=== PATIENT | female | born 1950 | race Caucasian/White ===

== ENCOUNTER 2017-06-30 03:34 | Emergency (ER) | payer BC ==
[~2017-06-30] VITALS: Ht 162.6 cm; Wt 65.8 kg
[~2017-06-30 03:34] MED LIST: AMITRIPTYLINE H50 MG; ASPIR-LOW81 MG; ATENOLOL50 MG; CALCIO DEL MAR500 MG; LODOSYN25 MG; MACROBID 100 M100 MG PO; MAXALT10 MG; MECLIZINE HCL25 MG PO; MULTI VITAMIN1 EACH; NORCO 5-325 TA1 EACH; SUPER B COMPLE150 MG; VITAMIN E1000 UNIT; ZOFRAN ODT8 MG PO
[2017-06-30] MEDS ORDERED: CARBIDOPA-LEVO1 EAC5 (04:03)
[2017-06-30] MEDS ORDERED: CARBIDOPA-LEVO1 EAC4 (04:04)
[2017-06-30] MEDS ORDERED: ATENOLOL50 MG PO (04:26)
[2017-06-30] MEDS ORDERED: AMITRIPTYLINE H25 MG PO (04:27)
[2017-06-30] MEDS ORDERED: HYDROCODON-ACE1 EA10 PO (04:27)
[2017-06-30] MEDS ORDERED: AMBIEN10 MG PO (04:27)
[2017-06-30] MEDS ORDERED: MAXALT10 MG PO (04:28)
[2017-06-30] MEDS ORDERED: ASPIR-LOW81 MG PO (04:28)
[2017-06-30] MEDS ORDERED: CLOBETASOL PROP15 GM (04:29)
[2017-06-30] MEDS ORDERED: SUPER B-50 COM1 EACH PO (04:29)
[2017-06-30] MEDS ORDERED: MULTIVITAMINS1 EAC7 PO (04:30)
[2017-06-30] MEDS ORDERED: CALCIUM 600 +1 EAC5 PO (04:30)
[2017-06-30] MEDS ORDERED: VITAMIN E1000 UNIT PO (04:30)
[2017-06-30] MEDS ORDERED: TOLTERODINE TART4 MG PO (04:31)
== END 2017-06-30 06:14 | disposition home or self-care (01) ==
LOC: ED 03:34
DX: K52.9 Noninfective gastroenteritis and colitis, unspecified (principal); G20 Parkinson's disease; Z87.891 Personal history of nicotine dependence; Z98.51 Tubal ligation status; Z79.899 Other long term (current) drug therapy; Z79.82 Long term (current) use of aspirin
CPT/HCPCS: 80053; 81001; 83690; 85025; 96361; 96374; 99283; J2405; J7030

== ENCOUNTER 2018-05-21 08:45 | Day surgery (SDC) | payer BC ==
[~2018-05-21] VITALS: Ht 165.1 cm; Wt 68.5 kg
[~2018-05-21 08:45] MED LIST changes: +AMBIEN10 MG PO; +AMITRIPTYLINE H25 MG PO; +ASPIR-LOW81 MG PO; +ATENOLOL50 MG PO; +CALCIUM 600 +1 EAC5 PO; +CARBIDOPA-LEVO1 EAC4; +CARBIDOPA-LEVO1 EAC5; +CLOBETASOL PROP15 GM; +HYDROCODON-ACE1 EA10 PO; +MAXALT10 MG PO; +MULTIVITAMINS1 EAC7 PO; +SUPER B-50 COM1 EACH PO; +TOLTERODINE TART4 MG PO; +VITAMIN E1000 UNIT PO
--- NOTE | 2018-05-21 10:43 | NUR ---
05/21/18 1043 Wily Mitchell MD AT BEDSIDE AT 1040 REVIEWING PROCEDURE WITH PT. MARYAM CONTINUES TO DENY NAUSEA OR PAIN. REPOSITIONED IN BED AND GAVE SIPS OF WATER WITHOUT PROBLEMS.
--- NOTE | 2018-05-22 09:34 | OR ---
[facility] [address], [place] [address] Signed DATE OF OPERATION: 05/21/2018 SURGEON: Alysha Wei MD PREOPERATIVE DIAGNOSES: 1. Constipation. 2. History of Parkinson disease. POSTOPERATIVE DIAGNOSIS: Small polyp right colon (excised) PROCEDURE: Total colonoscopy to cecum with cold morcellation polypectomy x1. ANESTHESIA: Intravenous sedation, fentanyl 100 mcg and versed 5 mg. INDICATION: This 67-year-old white woman is a patient of Dr. Vásquez and Dr. Lees and known to me from the past. 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 The patient underwent colonoscopy greater than 10 years ago, which was normal. She has constipation currently, but is also afflicted by Parkinson disease and multiple medications to manage that, which may have contributed to her constipation. She is admitted at this time to undergo colonoscopy, understands the risks of bleeding, infection, and perforation. FINDINGS: The prep was good. Complete colonoscopy was undertaken of the cecum. There was a small polyp of the right colon, which was excised. The remaining colon was normal. DESCRIPTION OF PROCEDURE: The patient was brought to the endoscopy suite and placed in lateral decubitus position, given intravenous sedation to the point of slurred speech and nystagmus. Digital rectal examination was normal. The Olympus video colonoscope was passed in the rectum and manipulated throughout the colon, ultimately intubating the cecum itself. Ileocecal valve was normal as was the appendiceal orifice. Photographs were taken. The scope was withdrawn and in the mid Electronically Signed By: ALYSHA WEI MD 05/22/18 0934 PATIENT NAME: MARYAM CHERRY OPERATIVE REPORT DATE OF : 54 REPORT #: [id number] PHYSICIAN: ALYSHA WEI MD PCP: HIEN VÁSQUEZ MD REPORT IS CONFIDENTIAL AND NOT TO BE RELEASED WITHOUT AUTHORIZATION [facility] [address], [place] [address] Signed ascending colon was a small sessile polyp. This was excised with cold morcellation technique without problem. Further withdrawal of the scope showed no sign of other abnormality. There may be a few scattered diverticula. Retroflexed view was normal. Scope was removed and the patient was taken to recovery room in good condition. CONCLUDING DIAGNOSIS: Small polyp, right colon. PLAN: Recommend repeat colonoscopy in 10 years unless pathology report confirms adenoma in which case, repeat in 5 years would be more appropriate. MD ALINE Saunders/FIORDALIZAL /[id number] cc: MD Dr. Fahad Lott Copies: LONG LEES MD ~ Electronically Signed By: ALYSHA WEI MD 05/22/18 0934 PATIENT NAME: MARYAM CHERRY OPERATIVE REPORT DATE OF : 54 REPORT #: [id number] PHYSICIAN: ALYSHA WEI MD PCP: HIEN VÁSQUEZ MD REPORT IS CONFIDENTIAL AND NOT TO BE RELEASED WITHOUT AUTHORIZATION
== END 2018-05-21 11:01 | disposition home or self-care (01) ==
LOC: DS 08:45 → OPS 08:45 → DS 10:00 → OPS 11:01
PROVIDERS: Surgery
PROC: 0DBF8ZZ Excision of Right Large Intestine, Via Natural or Artificial Opening Endoscopic (ICD-10-PCS; principal; 2018-05-21 10:00)
DX: D12.2 Benign neoplasm of ascending colon (principal); K59.09 Other constipation; G20 Parkinson's disease; I10 Essential (primary) hypertension; Z86.010 Personal history of colon polyps; Z98.890 Other specified postprocedural states
CPT/HCPCS: 99153; G0500; J2250; J3010; J7120

== ENCOUNTER 2023-11-13 11:53 | Emergency (ER) | payer BC ==
[~2023-11-13] VITALS: Ht 165.1 cm; Wt 73.9 kg
[2023-11-13] MEDS ORDERED: ROPINIROLE HCL1 MG PO (12:09)
[2023-11-13] MEDS ORDERED: MELATONIN1 MG PO (12:11)
[2023-11-13] MEDS ORDERED: VITAMIN D310 MC2 (12:11)
[2023-11-13] MEDS ORDERED: DONEPEZIL HCL10 MG PO (12:11)
[2023-11-13 12:48] LABS: BASOPHILS 0.3 % (0-2); HEMATOCRIT 40.4 % (35.0-50.0); HEMOGLOBIN 13.3 g/dL (12.0-18.0); LYMPHOCYTES 6.9 % (24-44); MCH 29.2 (27-36); MCV 88.5 fl (81-99); MONOCYTES 5.2 % (0-12); NEUTROPHILS 87.6 % (39-80); PLATELET COUNT 174 K/uL (140-440); RBC 4.56 M/ul (4.3-5.7)
[2023-11-13 12:49] LABS: BILIRUBIN, URINE NEGATIVE (negative); BLOOD/HGB, URINE NEGATIVE (Negative); KETONE, URINE TRACE (Negative); LEUK ESTERASE, URINE NEGATIVE (negative); NITRITE, URINE NEGATIVE (negative)
[2023-11-13 12:59] LABS: WHITE BLOOD CELLS, URINE 0-1 /HPF (0-5)
[2023-11-13 13:00] LABS: BACTERIA, URINE NONE SEEN /hpf (negative); CASTS, URINE NONE SEEN \\lpf; COLLECTION TYPE, URINE CATH; CRYSTALS, URINE NONE SEEN (0-1+); EPITHELIAL CELLS, URINE 0 /lpf (0-1+); REFLEX CULTURE, URINE No (No)
[2023-11-13 13:09] LABS: ALBUMIN 3.5 g/dL (3.4-5.0); ALBUMIN/GLOBULIN RATIO 1.03 (1.1-2.4); ANION GAP 13.2 (7-21); BILIRUBIN, TOTAL 0.6 ng/dL (0.2-1.0); BUN/CREATININE RATIO 11.11 (6.0-28.6); CALCIUM 8.5 mg/dL (8.5-10.1); CREATININE, SERUM 1.08 mg/dL (0.55-1.02); POTASSIUM 4.2 mmol/L (3.5-5.1); PROTEIN, TOTAL 6.9 g/dL (6.4-8.2)
[2023-11-13 13:40] LABS: INFLUENZA B NAA NEGATIVE (NEGATIVE); RESPIRATORY SYNCYTIAL VIR NAA NEGATIVE (NEGATIVE)
[2023-11-13 14:27] VITALS: BP 99/56
== END 2023-11-13 14:28 | disposition home or self-care (01) ==
LOC: ED 11:53
PROVIDERS: Emergency Medicine
DX: G20.A1 Parkinson's disease without dyskinesia, without mention of fluctuations (principal); F02.80 Dementia in other diseases classified elsewhere, unspecified severity, without behavioral disturbance, psychotic disturbance, mood disturbance, and anxiety; I10 Essential (primary) hypertension; Z11.52 Encounter for screening for COVID-19; Z87.891 Personal history of nicotine dependence; Z79.899 Other long term (current) drug therapy; Z79.82 Long term (current) use of aspirin
CPT/HCPCS: 36415; 80053; 81001; 85025; 87502; 99284; A9270; C9803; J7030; U0002

== ENCOUNTER 2025-01-04 18:24 | Emergency (ER) | payer BC ==
[~2025-01-04] VITALS: Ht 165.1 cm; Wt 76.7 kg
[~2025-01-04 18:24] MED LIST changes: +DONEPEZIL HCL10 MG PO; +MELATONIN1 MG PO; +ROPINIROLE HCL1 MG PO; +VITAMIN D310 MC2
[2025-01-04] MEDS ORDERED: ASPIRIN 81 MG CHEW PO ONE (18:30)
[2025-01-04 18:43] LABS: BASOPHILS 0.7 % (0-2); EOSINOPHILS 0.9 % (0-6); HEMATOCRIT 42.4 % (35.0-50.0); LYMPHOCYTES 19.7 % (24-44); MCH 29.1 (27-36); MONOCYTES 7.2 % (0-12); NEUTROPHILS 71.5 % (39-80); PLATELET COUNT 244 K/uL (140-440); RBC 4.82 M/ul (4.3-5.7); RDW 13.8 (10.5-15.0)
[2025-01-04] MEDS ORDERED: QUETIAPINE FUMA25 MG (18:43)
[2025-01-04 19:00] LABS: ALBUMIN 3.9 g/dL (3.4-5.0); ALBUMIN/GLOBULIN RATIO 1.3 (1.1-2.4); ANION GAP 13.8 (7-21); BILIRUBIN, TOTAL 0.4 mg/dL (0.2-1.0); BUN/CREATININE RATIO 18.26 (6.0-28.6); CALCIUM 9.1 mg/dL (8.5-10.1); CREATININE, SERUM 1.15 mg/dL (0.55-1.02); MAGNESIUM 2.1 mg/dL (1.8-2.4); POTASSIUM 3.8 mmol/L (3.5-5.1); PROTEIN, TOTAL 6.9 g/dL (6.4-8.2)
[2025-01-04] MEDS ORDERED: CYCLOBENZAPRINE10 MG PO (20:19)
[2025-01-04 20:27] VITALS: BP 164/67
[2025-01-04] MEDS ORDERED: CYCLOBENZAPRINE HCL 10 MG HOME.PACK PO ONE (20:30)
--- NOTE | 2025-01-05 14:01 | EKG ---
[facility] [address] [facility] [place] [address] Signed Normal sinus rhythm Normal ECG No previous ECGs available Confirmed by Wilbert Dumont MD ([id number]) on 01/05/2025 2:01:07 PM Electronically Signed By: WILBERT DUMONT MD 01/05/25 1401 PATIENT NAME: MARYAM CHERRY Electrocardiogram DATE OF : 54 PHYSICIAN: WILBERT DUMONT MD REPORT #: [id number] REPORT IS CONFIDENTIAL AND NOT TO BE RELEASED WITHOUT AUTHORIZATION
== END 2025-01-04 20:31 | disposition home or self-care (01) ==
LOC: ED 18:24
PROVIDERS: Emergency Medicine
DX: R07.89 Other chest pain (principal); G20.A1 Parkinson's disease without dyskinesia, without mention of fluctuations; F02.80 Dementia in other diseases classified elsewhere, unspecified severity, without behavioral disturbance, psychotic disturbance, mood disturbance, and anxiety; I10 Essential (primary) hypertension; Z87.891 Personal history of nicotine dependence; Z79.899 Other long term (current) drug therapy; Z79.82 Long term (current) use of aspirin
CPT/HCPCS: 36415; 71045; 80053; 83735; 84484; 85025; 85379; 93005; 93010; 99285-25; A9270

== ENCOUNTER 2025-03-11 11:18 | Inpatient (IN) | payer MEDICARE, BC ==
[~2025-03-11] VITALS: Ht 165.1 cm; Wt 77.9 kg
[~2025-03-11 11:18] MED LIST changes: -CARBIDOPA-LEVO1 EAC4; +CARBIDOPA-LEVO1 EAC4 PO; -CARBIDOPA-LEVO1 EAC5; +CARBIDOPA-LEVO1 EAC5 PO; +CYCLOBENZAPRINE10 MG PO; +QUETIAPINE FUMA25 MG PO
[2025-03-11 11:28] LABS: BASOPHILS 0.7 % (0-2); EOSINOPHILS 0.5 % (0-6); HEMATOCRIT 40.1 % (35.0-50.0); LYMPHOCYTES 19.4 % (24-44); MCH 29.3 (27-36); MCHC 34.9 g/dl (30-36); MCV 84.2 fl (81-99); MONOCYTES 5.2 % (0-12); NEUTROPHILS 74.2 % (39-80); PLATELET COUNT 229 K/uL (140-440); RBC 4.77 M/ul (4.3-5.7); RDW 13.7 (10.5-15.0)
[2025-03-11] MEDS ORDERED: LORazepam 2 MG/ML VIAL IV ONE ×2 (11:30→12:30)
[2025-03-11 11:39] LABS: INR 1.1 (0.80-1.30); PROTIME 13.8 Sec (11.2-14.2)
[2025-03-11 11:41] LABS: PARTIAL THROMBOPLASTIN TIME 25.4 Sec (22.9-41.3)
[2025-03-11 11:45] LABS: ALBUMIN 3.9 g/dL (3.4-5.0); ALKALINE PHOSPHATASE 131 U/L (46-116); ALT (SGPT) 22 U/L (14-59); ANION GAP 12.2 (7-21); AST (SGOT) 21 U/L (15-37); BILIRUBIN, TOTAL 0.5 mg/dL (0.2-1.0); BUN/CREATININE RATIO 17.75 (6.0-28.6); CALCIUM 8.7 mg/dL (8.5-10.1); CARBON DIOXIDE 28 mmol/L (21-32); CHLORIDE 105 mmol/L (98-107); CREATININE, SERUM 1.07 mg/dL (0.55-1.02); GLOMERULAR FILTRATION RATE,EST 55 mL/min (>60); POTASSIUM 4.2 mmol/L (3.5-5.1); PROTEIN, TOTAL 6.9 g/dL (6.4-8.2); UREA NITROGEN 19 mg/dL (7-18)
[2025-03-11 13:02] LABS: PH, VENOUS 7.389 (7.31-7.41)
[2025-03-11 13:04] LABS: BILIRUBIN, URINE NEGATIVE (negative); BLOOD/HGB, URINE NEGATIVE (Negative); KETONE, URINE NEGATIVE (Negative); LEUK ESTERASE, URINE TRACE (negative); NITRITE, URINE NEGATIVE (negative)
[2025-03-11 13:09] LABS: EPITHELIAL CELLS, URINE TRANSITIONAL 1+ /lpf (0-1+)
[2025-03-11 13:10] LABS: BACTERIA, URINE NONE SEEN /hpf (negative); CASTS, URINE NONE SEEN \\lpf; COLLECTION TYPE, URINE CLEAN CATCH; CRYSTALS, URINE NONE SEEN (0-1+); RED BLOOD CELLS, URINE 0-1 /hpf (0-5); REFLEX CULTURE, URINE No (No)
[2025-03-11 13:20] LABS: AMPHETAMINES, URINE NEGATIVE (NEGATIVE); BARBITURATES, URINE NEGATIVE (NEGATIVE); BENZODIAZEPINE, URINE NEGATIVE (NEGATIVE); BUPRENORPHINE, URINE NEGATIVE (NEGATIVE); CANNABINOID, URINE NEGATIVE (NEGATIVE); COCAINE, URINE NEGATIVE (NEGATIVE); ECSTASY, URINE NEGATIVE (NEGATIVE); FENTANYL, URINE NEGATIVE (NEGATIVE); METHADONE, URINE NEGATIVE (NEGATIVE); OPIATES, URINE NEGATIVE (NEGATIVE); OXYCODONE, URINE NEGATIVE (NEGATIVE); PHENCYCLIDINE, URINE NEGATIVE (NEGATIVE)
[2025-03-11] MEDS ORDERED: ACETAMINOPHEN 325 MG TAB PO PRN (15:15)
[2025-03-11] MEDS ORDERED: SODIUM CHLORIDE 0.9% 1,000 ML IV SCH (15:15)
[2025-03-11] MEDS ORDERED: ondansetron HCL 4 MG/2 ML VIAL IV PRN (15:15)
[2025-03-11] MEDS ORDERED: SEROQUEL25 MG PO (15:19)
--- NOTE | 2025-03-11 15:45 | NUR ---
PATIENT ARRIVES VIA STRETCHER WITH ROSIE VELASCO AND MULTIPLE FAMILY MEMBERS PRESENT. TRANSFERED TO HOSPITAL BED VIA SLIDE SHEET. VS OBTAINED AND RECORDED, WEIGHT OBTAINED AND RECORDED, BOTH IVs FLUSHED. THIS RN REMAINS IN ROOM TO COMPLETE ADMISSION.
[2025-03-11 15:54] VITALS: BP 147/67
--- NOTE | 2025-03-11 16:33 | NUR ---
medications reconciled using pharmacy records and patient's interview. she has several specific times throughout the day that she takes her medications for Parkinson's disease that have proven to be the most beneficial for her
--- NOTE | 2025-03-11 16:57 | NUR ---
ASSESSMENT COMPLETE. PATIENT'S MENTAL STATUS IS WAXING AND WANING WITH PATIENT HOLDING FLUENT, ORIENTED CONVERSATION FOR SEVERAL MINUTES AND THEN FALLING SILENT WITH EYES OPEN AND STARING AT NOTHING. AFTER APPROXIMATELY A MINUTE PATIENT BEGINS CONVERSING AGAIN WITH PROMPTING. PATIENT IS UNSURE OF DATE, RESPONDING "OH MAN, I'M NOT SURE." WHEN ASKED. PATIENT CORRECTLY IDENTIFIES THAT SHE IS IN A HOSPITAL AND IS AGREEABLE TO CARES. PATIENT CANNOT ANSWER WHY SHE IS IN THE HOSPITAL BUT CAN TELL THIS RN THAT SHE USUALLY GOES TO [facility] TO SEE HER DOCTOR. IVF INFUSING WNL TO LEFT FOREARM. PATIENT HAS NO COMPLAINTS OF PAIN OR DISCOMFORT. CALL LIGHT IN REACH, BED ALARM ON, BED IN LOWEST POSITION.
[2025-03-11] MEDS ORDERED: LEVODOPA/CARBIDOPA 25/100 1 EA TAB PO SCH (17:00)
--- NOTE | 2025-03-11 17:33 | NUR ---
UPDATED ON PATIENT'S STATUS. REQUESTS NEURO CHECKS Q4, OK TO D/C NIH D/T LOW STROKE SUSPICION. NO NEW ORDERS.
--- NOTE | 2025-03-11 17:43 | NUR ---
PATIENT IS NOTED TO HAVE TENDENCY TO LEAN TO HER LEFT AND HAVE CLASSICAL PD MOVEMENTS IN BED. FALL MAT PLACED TO L SIDE OF BED. PATIENT HAS ALSO VOIDED CLEAR, YELLOW URINE. PATIENT HAS NO REQUESTS, SHE IS SUCKING ON A TOOTSIE POP. CALL LIGHT AND PERSONAL BELONGINGS IN REACH.
[2025-03-11 18:36] VITALS: BP 124/57
--- NOTE | 2025-03-11 18:37 | NUR ---
PATIENT IS IN HER BED AT THIS TIME, HOT ROLL INSPECTOR CHARTED VITALS AND I&O'S CALL LIGHT WITH IN REACH AND NOTHING ELSE NEEDED AT THIS TIME
--- NOTE | 2025-03-11 18:48 | NUR ---
PATIENT'S EXPRESSES CONCERNS OVER THE PATIENT'S CARE. HE STATES HE HAS CARED FOR HER 24/7 FOR 3.5 YEARS AND HE IS VERY TIRED. HE SAYS THAT HE WOULD NEVER PLACE HIS IN A HOME, HE IS UNSURE WHAT OTHER OPTIONS HE HAS. CONSULT PLACED TO CASE MANAGEMENT SO PATIENT MAY REVIEW RESOURCES.
[2025-03-11 18:58] VITALS: BP 124/57
[2025-03-11] MEDS ORDERED: LEVODOPA PO SCH (19:00)
[2025-03-11] MEDS ORDERED: DONEPEZIL HCL 10 MG TAB PO SCH (19:00)
[2025-03-11] MEDS ORDERED: CARBIDOPA PO SCH (19:00)
--- NOTE | 2025-03-11 19:27 | NUR ---
RECEIVED REPORT. PT ALERT WITH SUPPORTIVE AT BEDSIDE. REPORTS PT IS SOMEWHAT RESTLESS. NO NEEDS PRESENTLY. ASKS IF SHE SHOULD TAKE SOME MEDICAITON FOR SLEEPING, EDUCATEDT HAT SEDATION MAY MAKE IT DIFFICULT TO ASSESS ACCURATE NEURO STATUS AND MAY BE CONTRIBUTING TO ALTERED MENTAL STATUS. VERBALIZES UNDERSTANDING. CALL LGT IN REACH, BED ALARM ACTIVE.
--- NOTE | 2025-03-11 20:10 | NUR ---
PT RESTLESS IN BED, DESIRES TO GO HOME.SUPPORTIVE IN ROOM. ASSISTED PT FROM BED TO RECLINER TO LOOK OUT WINDOW, TURNED OF TELEVISION SOUND. WRAPPED PT IV AND HID TUBES. PLACED PERSONAL OBJECTS AND CALL LIGHT ON TABLE IN FRONT OF PT AND WARM BLANKETS GIVEN. RE-DIRECTED PT ASKING ABOUT HER CAT. PT MUCH LESS AGITATED. GIVEN EVENING MEDS, VITALS, ASSESSMENT. NO OTHER NEEDS PRESENTLY. CHAIR ALARM ACTIVE
[2025-03-11] MEDS ORDERED: POLYETHYLENE GLYCOL 3350 1 PACKET PO SCH (21:00)
[2025-03-11 21:14] VITALS: BP 113/89
--- NOTE | 2025-03-11 21:52 | EKG ---
[facility] [address] [facility] [place] [address] Signed Normal sinus rhythm Cannot rule out Anterior infarct , age undetermined Abnormal ECG When compared with ECG of 04-JAN-2025 18:27, Questionable change in QRS axis Confirmed by Grecia Villafana MD () on 03/11/2025 9:52:21 PM Electronically Signed By: GRECIA VILLAFANA MD 03/11/[id number] PATIENT NAME: MARYAM CHERRY ANN Electrocardiogram DATE OF : 54 PHYSICIAN: GRECIA VILLAFANA MD REPORT #: [id number] REPORT IS CONFIDENTIAL AND NOT TO BE RELEASED WITHOUT AUTHORIZATION
--- NOTE | 2025-03-11 22:17 | NUR ---
PT ASSISTED BY CHARGE FROM CHAIR BACK TO BED. RECONNECTED PUREWICK, ALL PERSONAL OBJECTS IN REACH. CALL LIGHT IN REACH, BED ALARM ACTIVE, FALL MATTS IN PLACE.
[2025-03-11 22:50] VITALS: BP 113/89
--- NOTE | 2025-03-11 23:47 | NUR ---
PT ALERT, SEEN UNWRAPPING ELISHA AROUND IV SITE. HELPED PT RE-ADJUST IN BED AND RE-WRAPPED IV SITE. NO OTHER NEEDS, BED ALARM ACTIVE
[2025-03-12] VITALS (15 sets, daily range): BP systolic 136–210; BP diastolic 58–136
--- NOTE | 2025-03-12 00:13 | NUR ---
RESPONDED TO PT CALLING OUT. REPORRTS PUREWICK IS UNCOMFORTABLE. ADJUSTED PUREWICK AND HELPED PT ADJUST IN BED. NO OTHER NEEDS, CALL LIGHT IN REACH, BED ALARM ACTIVE
[2025-03-12] MEDS ORDERED: CLOTRIMAZOLE 1% 30 GM TUBE TOP PRN (00:15)
--- NOTE | 2025-03-12 02:05 | NUR ---
RESPONDED TO BED ALARM. PT INITIALLY DISORIENTED AND FEARFUL UPON WAKING, BUT CALMED WITH REORIENTATION, REMEMBERS SHE IS IN HOSPITAL. ASSISTED TO BEDSIDE COMMODE, THEN BACK TO BED. VITALS TAKEN. BP ELEVATED, BUT LIKELY D/T TRANSFERRING, PLAN TO RECHECK. PERSONAL POSSESSIONS AND CALL LIGHT IN REACH, BED ALARM ACTIVE.
--- NOTE | 2025-03-12 04:13 | NUR ---
RESPONDED TO BED ALARM. PT ATTEMPTING TO GO TO BATHROOM D/T LARGE BOWEL MOVEMENT. ASSISTED TO BEDSIDE COMMODE, CHANGED BED LINENS AND BRIEF. PT WITH ADDITIONAL BM TO COMMODE. ASSISTED TO BED AND READJUSTED. PERSONAL ITEMS IN REACH, BED ALARM ACTIVE
[2025-03-12 05:17] LABS: BASOPHILS 0.4 % (0-2); EOSINOPHILS 0.2 % (0-6); HEMATOCRIT 39.5 % (35.0-50.0); HEMOGLOBIN 13.6 g/dL (12.0-18.0); LYMPHOCYTES 16.4 % (24-44); MCH 28.7 (27-36); MCHC 34.3 g/dl (30-36); MCV 83.8 fl (81-99); MONOCYTES 4.7 % (0-12); NEUTROPHILS 78.3 % (39-80); PLATELET COUNT 200 K/uL (140-440); RBC 4.72 M/ul (4.3-5.7); RDW 13.7 (10.5-15.0)
[2025-03-12 05:46] LABS: ALBUMIN 3.6 g/dL (3.4-5.0); ALBUMIN/GLOBULIN RATIO 1.24 (1.1-2.4); ANION GAP 12.1 (7-21); BILIRUBIN, TOTAL 0.5 mg/dL (0.2-1.0); BUN/CREATININE RATIO 13.79 (6.0-28.6); CALCIUM 8.4 mg/dL (8.5-10.1); CREATININE, SERUM 0.87 mg/dL (0.55-1.02); MAGNESIUM 2.2 mg/dL (1.8-2.4); POTASSIUM 4.1 mmol/L (3.5-5.1); PROTEIN, TOTAL 6.5 g/dL (6.4-8.2)
[2025-03-12 05:58] LABS: CHOLESTEROL/HDL RATIO 3.5
[2025-03-12] MEDS ORDERED: LEVODOPA/CARBIDOPA 25/100 1 EA TAB PO SCH (06:00)
--- NOTE | 2025-03-12 06:02 | NUR ---
PT WITH ELEVATED BP, INITIALLY IN 200S, REDUCED TO 170/90. NO STROKE SX, DENIES PAIN. LAB IN ROOM PRIOR. NOTIFIED. PLAN TO RECHECK IN 30 MIN.
--- NOTE | 2025-03-12 07:02 | NUR ---
REPEAT BP 181/74. ARRIVES, MENTIONS PT BP FLUXUATES FREQUENTLY SECONDARY TO HER PARKINSON'S, AND SHE DOES NOT TAKE BP MEDS REGULARLY BUT HAS A "HALF PILL" THAT SHE TAKES WHEN HER BLOOD PRESSURE IS TOO HIGH. HE DOES NOT REMEMBER THE NAME OF THE MEDICATION, BUT STATES HE WILL LOOK WHEN HE STOPS BY HOME. GIVEN MENU, CALL LIGHT IN REACH
--- NOTE | 2025-03-12 07:27 | NUR ---
PT RESTING QUIET ALERT AT TIME OF SHIFT REPORT. AGREES SHE IS COMFORTABLE DENIES NEEDS. FALL MAT IN PLACE CALL LIGHT IN LAP FLUIDS AT BEDSIDE.
--- NOTE | 2025-03-12 08:07 | NUR ---
PT ARRIVES ASSISTS PT TO CHAIR. SHE HAS A LARGE SOFT BM FABIAN CARE COMLETE. PT IN RECLINER DRINKING FLUIDS STAYING TO VISIT.
--- NOTE | 2025-03-12 08:30 | NUR ---
PATIENT SITTING UP IN CHAIR AT THIS TIME. ASSISTING PATIENT WITH EATING BREAKFAST. BOARD UPDATED. CALL LIGHT IN REACH.
--- NOTE | 2025-03-12 09:38 | NUR ---
ASSISTS WITH MORNING MEAL PT EATS 100% HAS CONTINUED IN CHAIR ALL MORNING. ECHO COMING FOR SCAN PT RETURNED TO BED GOES TO EAT. BED ALARM IS SET
--- NOTE | 2025-03-12 10:59 | NUR ---
PATIENT IN BED AT THIS TIME. VITALS AND I&O'S DONE AND CHARTED. BLOOD PRESSURE HIGH, RN NOTIFED. PT IN ROOM AT THIS TIME. CALL LIGHT IN REACH. NO FURTHER NEEDS AT THIS TIME.
--- NOTE | 2025-03-12 11:14 | NUR ---
DR VILLAFANA NOTIFIED OF ELEVATED BP
--- NOTE | 2025-03-12 11:17 | NUR ---
PT WORKING WITH P/T.
--- NOTE | 2025-03-12 11:27 | NUR ---
PT TO BSC PASSES MORE STOOL. FABIAN CARE COMPLETE CONTINUES TO WORK WITH P/T. VISITOR IS PRESENT.
--- NOTE | 2025-03-12 11:44 | NUR ---
PT VERY COOPERATIVE WITH THERAPY THEN RETURNS TO THE CHAIR. DRINKS FRESH H20. SITTING UP NOW, AND DAUGHTER PRESENT.
[2025-03-12] MEDS ORDERED: PHARMACY RENAL DOSE ADJUSTMENT 1 DOSE MISC PO SCH (12:00)
--- NOTE | 2025-03-12 13:57 | NUR ---
PATIENT IN BED RESTING WITH EYES CLOSED. VITALS AND I&O'S DONE AND CHARTED. CALL LIGHT IN REACH. NO FURTHER NEEDS AT THIS TIME.
--- NOTE | 2025-03-12 14:14 | NUR ---
PT COMPLETES NOON MEAL WITH HUSBANDS ASSISTANCE. RESTING IN BED NOW EYES CLOSED CALL LIGHT IN REACH
[2025-03-12] MEDS ORDERED: LABETALOL HCL 100 MG TAB PO PRN (15:00)
--- NOTE | 2025-03-12 17:51 | NUR ---
PT SITTING UP IN THE CHAIR PRESENT TO ASSIST WITH EVENING MEAL. PT C/O NAUSEA ZOFRAN ADMINISTERED AND JELLO PROVIDED PER REQUEST
--- NOTE | 2025-03-12 18:34 | NUR ---
PATIENT IN BED RESTING AT THIS TIME. VITALS AND I&O'S DONE AND CHARTED. BP HIGH, RN NOTIFIED. CALL LIGHT IN REACH. IN ROOM. NO FURTHER NEEDS AT THIS TIME.
--- NOTE | 2025-03-12 19:12 | NUR ---
RECEIVED REPORT. LUCILLE IN ROOM WITH PT, PT ALERT IN BED. NO NEEDS AT THIS TIME. CALL LIGHT IN REACH, BED ALARM ACTIVE, FALL MAT IN PLACE
--- NOTE | 2025-03-12 20:28 | NUR ---
ASSESSMENT, VITALS, EVENING MEDS. PT REQUESTS SANDWICH, NONE IN [place]ID[place]. WILL TRY AND FIND ONE. DECLINES OTHER SNACKS. NO OTHER NEEDS PRESENTLY, CALL LIGHT IN REACH, BED ALARM ACTIVE
--- NOTE | 2025-03-12 21:45 | NUR ---
BED ALARMING. ASSISTED PATIENT UP TO THE BATHROOM TO VOID. FABIAN CARE ASSISTED. FRESH PULL UPS PLACED. PATIENT IS BACK IN BED. ALARM ON FOR SAFETY.
--- NOTE | 2025-03-12 22:29 | NUR ---
PT RESTING IN BED WITH EYES CLOSED. BED ALARM ACTIVE, FALL MAT IN PLACE
--- NOTE | 2025-03-13 00:58 | NUR ---
PT RESTING IN BED WITH CLOSED EYES, RISE AND FALL OF CHEST OBSERVED. BED ALARM ACTIVE, FALL MAT IN PLACE
--- NOTE | 2025-03-13 02:25 | NUR ---
BED ALARMING. JET AIRCRAFT SERVICER DILIA IN THE ROOM. THIS IN FILE OPERATOR TOOK OVER. 1 PA PATIENT UP TO THE BATHROOM. PULL UPS WET. FABIAN CARE ASSISTED. FRESH PULL UP PLACED. BED LINEN CHANGED DUE TO WET WITH URINE. PATIENT IS BACK IN BED. ALARM ON FOR SAFETY.
--- NOTE | 2025-03-13 03:48 | NUR ---
PT IN BED WITH EYES CLOSED, RISE AND FALL OF CHEST OBSERVED. CALL LIGHT IN REACH, BED ALARM ACTIVE, FAL MAT IN PLACE
[2025-03-13 05:34] VITALS: BP 183/91
--- NOTE | 2025-03-13 06:02 | NUR ---
CALL LIGHT ANSWERED, USES CALL LIGHT. 1PA WITH FWW TO AMBULATE TO RESTROOM FOR VOID. pt WASHES HANDS, UP TO CHAIR. CHAIR ALARM ON. REMAINS IN ROOM WITH pt. CALL LIGHT IN REACH.
--- NOTE | 2025-03-13 07:15 | NUR ---
PT ALERT AND SITTING UP IN BED WITH PRESENT AT TIME OF SHIFT REPORT. PT AGREES SHE FEELS WELL THIS MORNING DENIES NEEDS OF. CALL LIGHT FRESH H20 AND NEEDED ITEMS IN REACH
--- NOTE | 2025-03-13 08:48 | NUR ---
PATIENT IN BED AT THIS TIME. STAMP PRESS OPERATOR CHARTED HOURLY ROUNDS. CALL LIGHT WITHIN REACH, NO FURTHER NEEDS AT THIS TIME.
--- NOTE | 2025-03-13 09:05 | NUR ---
PT OUT OF BED AND UP TO THE RECLINER FOR BREAKFAST. IS PRESENT FOR ASSIST PT EATS MOST OF MEAL NO C/O DISCOMFORTS. PT BACK FROM MRI WELL TOLERATED TECH STATED SHE DID GREAT. PT REMAINS UP IN THE CHAIR PRESENT
[2025-03-13 09:49] VITALS: BP 183/91
[2025-03-13 09:55] VITALS: BP 167/64
--- NOTE | 2025-03-13 09:57 | NUR ---
PATIENT IN CHAIR AT THIS TIME. COAL EQUIPMENT OPERATOR CHARTED VITALS AND I&O'S. CALL LIGHT WITHIN REACH, NO FURTHER NEEDS AT THIS TIME.
--- NOTE | 2025-03-13 10:00 | NUR ---
CLIP LOADING MACHINE FEEDER ASSISTED PATIENT BACK TO BED. CALL LIGHT WITHIN REACH, NO FURTHER NEEDS.
--- NOTE | 2025-03-13 10:34 | NUR ---
DR HUDSON IN TO SEE PT IS PRESENT. DISCUSSED PT CONDITION AND DC ALL QUESTIONS ANSWERED. PT TO DC TODAY.
--- NOTE | 2025-03-13 10:48 | NUR ---
UR CLINICAL REVIEW: 2 [place] FOR VERSALUS-PER SOIL SCIENCE TEACHER MEETS INPT FOR ENCEPHALOPATHY WITH NEED FOR FURTHER MONITORING OBS TO INPT 03/12/25 @ 0913 ORDER MATCHES REG MEDICARE PART A ONLY NO AUTH REQUIRED PER MEDICARE GUIDELINES DISCHARGE TO HOME WITH WHEN STABLE
--- NOTE | 2025-03-13 11:13 | NUR ---
LIST OF STATE APPROVED CAREGIVERS PROVIDED TO PT
[2025-03-13] MEDS ORDERED: LIPITOR40 MG PO (11:16)
[2025-03-13] MEDS ORDERED: AMLODIPINE BESY10 MG PO (11:17)
[2025-03-13] MEDS ORDERED: TRAZODONE HCL50 MG PO (11:18)
--- NOTE | 2025-03-13 11:18 | NUR ---
Pt is nonverbal and lives with her spouse. He is her cg and provides all care. Pt has a walker and is a 1 person assist with spouse. Pt has Parkinsons and demential. Spouse denies needs and plans on taking pt home. He is interested possible cg. Left a brochure for [facility] and [facility].
--- NOTE | 2025-03-13 11:28 | NUR ---
PT IS DRESSED AND READY FOR DC HAS WENT TO EAT LUNCH. PT WILL EAT LUNCH HERE THEN LEAVE WITH
--- NOTE | 2025-03-13 11:32 | NUR ---
PATIENT IN CHAIR AT THIS TIME. THIS PAYROLL BENEFITS ADMINISTRATOR REMOVED PATIENTS IV CATHETER PER RN ZULEIKA REQUEST. CALL LIGHT WITHIN REACH, NO FURTHER NEEDS.
--- NOTE | 2025-03-13 12:29 | NUR ---
PT DARLINE MEETING WITH PHARMACY TO DISCUSS MEDS THEN WILL DC HOME
[2025-03-13] MEDS ORDERED: LABETALOL HCL100 MG PO (12:34)
[2025-03-13] MEDS ORDERED: ATORVASTATIN 40 MG TAB PO SCH (17:00)
== END 2025-03-13 12:45 | disposition home or self-care (01) | DRG 917 ==
LOC: ED 11:18 → MS 15:11
PROVIDERS: Emergency Medicine; ADMIT Family Medicine; ATTEND Family Medicine
DX: T43.591A Poisoning by other antipsychotics and neuroleptics, accidental (unintentional), initial encounter (principal); G92.8 Other toxic encephalopathy; G20.A1 Parkinson's disease without dyskinesia, without mention of fluctuations; F02.80 Dementia in other diseases classified elsewhere, unspecified severity, without behavioral disturbance, psychotic disturbance, mood disturbance, and anxiety; I10 Essential (primary) hypertension; I65.22 Occlusion and stenosis of left carotid artery; E78.00 Pure hypercholesterolemia, unspecified; R73.03 Prediabetes; Z87.891 Personal history of nicotine dependence; Z90.49 Acquired absence of other specified parts of digestive tract; Z98.51 Tubal ligation status; Z79.899 Other long term (current) drug therapy; X58.XXXA Exposure to other specified factors, initial encounter
CPT/HCPCS: 36415; 51702; 70450; 70496; 70498; 70551; 71045; 80053; 80061; 80307; 81001; 82803; 83036; 83735; 84100; 84484; 85025; 85610; 85730; 93005; 93010; 93306; 97110; 97162; 99285-25; G0480; J2060; J2405; J7030; Q9967

== ENCOUNTER 2025-11-13 16:42 | Emergency (ER) | payer BC ==
[~2025-11-13] VITALS: Ht 165.1 cm; Wt 72.0 kg
[~2025-11-13 16:42] MED LIST changes: +AMLODIPINE BESY10 MG PO; +LABETALOL HCL100 MG PO; +LIPITOR40 MG PO; +SEROQUEL25 MG PO; +TRAZODONE HCL50 MG PO
[2025-11-13 17:32] LABS: BASOPHILS 0.3 % (0.1-1.2); EOSINOPHILS 0.6 % (0.7-5.8); LYMPHOCYTES 18.8 % (19.3-51.7); MCH 28.8 PG (25.6-32.2); MCHC 32.2 g/dL (32.2-35.5); MCV 89.5 fL (79.4-94.8); MONOCYTES 6.7 % (4.7-12.5); NEUTROPHILS 73.3 % (34.0-71.1); RBC 4.37 M/uL (3.93-5.22)
[2025-11-13 17:53] LABS: ALCOHOL, MEDICAL <3 mg/dL (<3); ALT (SGPT) 13 U/L (14-59); AST (SGOT) 11 U/L (15-37); GLOMERULAR FILTRATION RATE,EST 53 mL/min (>60); PROTEIN, TOTAL 6.5 g/dL (6.4-8.2); UREA NITROGEN 13 mg/dL (7-18)
[2025-11-13 18:51] LABS: BLOOD/HGB, URINE NEGATIVE (Negative); KETONE, URINE TRACE (Negative); LEUK ESTERASE, URINE NEGATIVE (negative); NITRITE, URINE NEGATIVE (negative)
[2025-11-13 19:06] LABS: AMPHETAMINES, URINE POSITIVE (NEGATIVE); BARBITURATES, URINE NEGATIVE (NEGATIVE); BENZODIAZEPINE, URINE NEGATIVE (NEGATIVE); CANNABINOID, URINE NEGATIVE (NEGATIVE); COCAINE, URINE NEGATIVE (NEGATIVE); ECSTASY, URINE POSITIVE (NEGATIVE); FENTANYL, URINE POSITIVE (NEGATIVE); METHADONE, URINE NEGATIVE (NEGATIVE); OPIATES, URINE POSITIVE (NEGATIVE); OXYCODONE, URINE NEGATIVE (NEGATIVE); PHENCYCLIDINE, URINE NEGATIVE (NEGATIVE)
[2025-11-13 19:38] VITALS: BP 155/76
--- NOTE | 2025-11-17 19:07 | EKG ---
[facility] [address] [facility] [place] [address] Signed Poor data quality, interpretation may be adversely affected Normal sinus rhythm Nonspecific ST and T wave abnormality Abnormal ECG When compared with ECG of 11-MAR-2025 12:18, Questionable change in QRS axis Nonspecific T wave abnormality now evident in Lateral leads Confirmed by Grecia Villafana MD () on 11/17/2025 7:07:03 PM Electronically Signed By: GRECIA VILLAFANA MD 11/17/25 1907 PATIENT NAME: MARYAM CHERRY Electrocardiogram DATE OF : 54 PHYSICIAN: GRECIA VILLAFANA MD REPORT #: [id number] REPORT IS CONFIDENTIAL AND NOT TO BE RELEASED WITHOUT AUTHORIZATION
== END 2025-11-13 19:40 | disposition home or self-care (01) ==
LOC: ED 16:42
PROVIDERS: Emergency Medicine
DX: R41.82 Altered mental status, unspecified (principal); I10 Essential (primary) hypertension; Z87.891 Personal history of nicotine dependence; Z79.899 Other long term (current) drug therapy
CPT/HCPCS: 36415; 70450; 71045; 80053; 80307; 81003; 84484; 85025; 93005; 93010; 99285-25; G0480